=== PATIENT | female | born 1975 | race Caucasian/White ===

== ENCOUNTER 2017-01-27 07:04 | Emergency (ER) | payer SELFPAY ==
[2017-01-27] MEDS ORDERED: Sodium Chloride 0.9% 10 ML Syringe FLUSH PRN (07:40)
[2017-01-27] MEDS ORDERED: Ondansetron 4 MG/2 ML SDV IVPUSH ONE (07:40)
[2017-01-27] MEDS ORDERED: HYDROmorphone 1 MG/ML Syringe IVPUSH ONE (07:40)
[2017-01-27] MEDS ORDERED: Famotidine 20 MG/2 ML SDV IVPUSH ONE (07:40)
[2017-01-27] MEDS ORDERED: Sodium Chloride 0.9% 1,000 ML IV SCH (07:45)
--- NOTE | 2017-01-27 07:56 | EDM.PDOC ---
ED HPI GENERAL MEDICAL PROBLEM - General Chief Complaint: Abdominal Pain Stated Complaint: STOMACH PAIN Time Seen by Provider: 01/27/17 07:21 Source of Information: Reports: Patient, RN Notes Reviewed - History of Present Illness INITIAL COMMENTS - FREE TEXT/NARRATIVE: 41-year-old lady comes in with severe abdominal pain, cramping associated with vomiting and diarrhea. She had fairly sudden onset of the symptoms 2 days ago. She continues with severe watery diarrhea, intermittent vomiting both worse after any attempts to eat or drink. States she also has a daughter heal with the same symptoms that did become ill at about the same time. They have been traveling in the days leading up to the illness having arrived home the night before she became sick. She's had some chills, no major fever. She states there was some "blood" with the diarrhea last evening. Upper Abdominal Pain Score (Numeric/FACES): 10 - Related Data Allergies Allergy/AdvReac Type Severity Reaction Status Date / Time coconut Allergy Hives Verified 01/27/17 07:13 Home Meds: Home Meds Ciprofloxacin HCl [Cipro] 500 mg PO Q12HR #7 tablet 01/27/17 [Rx] Ibuprofen [Advil] 400 mg PO BID 01/27/17 [History] Ondansetron [Zofran ODT] 4 mg PO Q6H PRN #7 tab.dis 01/27/17 [Rx] traZODone 50 mg PO BEDTIME 01/27/17 [History] Past Medical History Dermatologic History: Reports: Other (See Below) - Past Surgical History Female Surgical History: Reports: Section Neurological Surgical History: Reports: C-Spine Social & Family History - Tobacco Use Smoking Status *Q: Current Every Day Smoker Years of Tobacco use: 19 Packs/Tins Daily: 1.5 - Caffeine Use Caffeine Use: Reports: Coffee, Energy Drinks, Soda - Alcohol Use Days Per Week of Alcohol Use: 6 Number of Drinks Per Day: 2 Total Drinks Per Week: 12 - Recreational Drug Use Recreational Drug Use: No Drug Use in Last 12 Months: No ED ROS GENERAL - Review of Systems Review Of Systems: See Below Constitutional: Reports: Chills. Denies: Fever HEENT: Denies: Throat Pain Respiratory: Denies: Shortness of Breath, Pleuritic Chest Pain Cardiovascular: Denies: Chest Pain GI/Abdominal: Reports: Abdominal Pain, Diarrhea, Nausea, Vomiting Musculoskeletal: Reports: No Symptoms Skin: Reports: No Symptoms Neurological: Reports: Dizziness ED EXAM, GI/ABD - Physical Exam Exam: See Below General Appearance: Alert, Anxious, Moderate Distress Eyes: Bilateral: Normal Appearance Throat/Mouth: Normal Inspection, Normal Oropharynx Head: Atraumatic. No: Facial Swelling Neck: Supple, Full Range of Motion Respiratory/Chest: No Respiratory Distress, Lungs Clear, Normal Breath Sounds Cardiovascular: Regular Rate, Rhythm GI/Abdominal Exam: Tender (diffuse) Back Exam: No: CVA Tenderness (L), CVA Tenderness (R) Extremities: Normal Inspection, Normal Range of Motion Neurological: Alert, Oriented, No Motor/Sensory Deficits Skin Exam: Warm, Dry, Normal Color Course - Vital Signs Last Recorded V/S: Last Vital Signs Temp 98.7 F 01/27/17 07:10 Pulse 91 01/27/17 07:10 Resp 16 01/27/17 07:10 BP 124/65 01/27/17 07:10 Pulse Ox 97 01/27/17 07:10 - Orders/Labs/Meds Orders: Active Orders 24 hr Category Date Time Status Peripheral IV Care [RC] . DIRECTED Care 01/27/17 07:40 Active HYDROmorphone [Dilaudid] Med 01/27/17 08:54 Once 0.5 mg IVPUSH ONETIME ONE Sodium Chloride 0.9% [Normal Saline] 1,000 ml Med 01/27/17 07:45 Active IV ONETIME Sodium Chloride 0.9% [Saline Flush] Med 01/27/17 07:40 Active 10 ml FLUSH ASDIRECTED PRN Peripheral IV Insertion Adult [OM.PC] Stat Oth 01/27/17 07:40 Ordered Medication Orders Hydromorphone HCl (Dilaudid) 0.5 mg IVPUSH ONETIME ONE Stop: 01/27/17 08:55 Sodium Chloride (Normal Saline) 1,000 mls @ 999 mls/hr IV ONETIME YESSICA Last Admin: 01/27/17 07:49 Dose: 999 mls/hr Sodium Chloride (Saline Flush) 10 ml FLUSH ASDIRECTED PRN PRN Reason: Keep Vein Open Last Admin: 01/27/17 07:45 Dose: 10 ml Labs: Laboratory Tests 01/27/17 01/27/17 Range/Units 07:18 07:18 WBC 8.69 (3.98-10.04) K/mm3 RBC 4.71 (3.98-5.22) M/mm3 Hgb 14.4 (11.2-15.7) gm/L Hct 41.4 (34.1-44.9) % MCV 87.9 (79.4-94.8) fl MCH 30.6 (25.6-32.2) pg MCHC 34.8 (32.2-35.5) g/dl RDW Std Deviation 44.8 (36.4-46.3) fL Plt Count 196 (182-369) K/mm3 MPV 10.3 (9.4-12.3) fl Neut % (Auto) 84.3 H (34.0-71.1) % Lymph % (Auto) 10.5 L (19.3-51.7) % [place] % (Auto) 4.7 (4.7-12.5) % Eos % (Auto) 0.1 L (0.7-5.8) Baso % (Auto) 0.2 (0.1-1.2) % Neut # (Auto) 7.32 H (1.56-6.13) K/mm3 Lymph # (Auto) 0.91 L (1.18-3.74) K/mm3 [place] # (Auto) 0.41 H (0.24-0.36) K/mm3 Eos # (Auto) 0.01 L (0.04-0.36) K/mm3 Baso # (Auto) 0.02 (0.01-0.08) K/mm3 Sodium 134 L (136-145) mEq/L Potassium 3.7 (3.5-5.1) mEq/L Chloride 99 (98-107) mEq/L Carbon Dioxide 26 (21-32) mEq/L Anion Gap 12.7 (5-15) BUN 8 (7-18) mg/dL Creatinine 1.2 H (0.55-1.02) mg/dL Est Cr Clr Drug Dosing 63.17 mL/min Estimated GFR (MDRD) 49 (>60) mL/min BUN/Creatinine Ratio 6.7 L (14-18) Glucose 116 H (74-106) mg/dL Calcium 9.2 (8.5-10.1) mg/dL Total Bilirubin 0.2 (0.2-1.0) mg/dL AST 22 (15-37) U/L ALT 11 L (14-59) U/L Alkaline Phosphatase 54 (46-116) U/L Total Protein 7.8 (6.4-8.2) g/dl Albumin 3.5 (3.4-5.0) g/dl Globulin 4.3 gm/dL Albumin/Globulin Ratio 0.8 L (1-2) Lipase 104 (73-393) U/L Meds: Medications Generic Name Dose Route Start Last Admin Trade Name Freq PRN Reason Stop Dose Admin Hydromorphone HCl 0.5 mg 01/27/17 08:54 Dilaudid IVPUSH 01/27/17 08:55 ONETIME ONE Sodium Chloride 1,000 mls @ 999 mls/hr 01/27/17 07:45 01/27/17 07:49 Normal Saline IV 999 mls/hr ONETIME YESSICA Administration Sodium Chloride 10 ml 01/27/17 07:40 01/27/17 07:45 Saline Flush FLUSH 10 ml ASDIRECTED PRN Administration Keep Vein Open Discontinued Medications Generic Name Dose Route Start Last Admin Trade Name Freq PRN Reason Stop Dose Admin Famotidine 20 mg 01/27/17 07:40 01/27/17 07:46 Pepcid IVPUSH 01/27/17 07:41 20 mg ONETIME ONE Administration Hydromorphone HCl 0.5 mg 01/27/17 07:40 01/27/17 07:47 Dilaudid IVPUSH 01/27/17 07:41 0.5 mg ONETIME ONE Administration Ondansetron HCl 4 mg 01/27/17 07:40 01/27/17 07:45 Zofran IVPUSH 01/27/17 07:41 4 mg ONETIME ONE Administration - Re-Assessments/Exams Free Text/Narrative Re-Assessment/Exam: 01/27/17 08:55 Feeling somewhat better after IV fluid and meds, pain and cramping is starting to come back intermittently so we'll do another dose of 0.5 mg Dilaudid IV. As noted a daughter of hers is also ill with the same symptoms coming on at about the same time. They're not sure when this happened but this sure looks like a food borne illness. Therefore I am going to put her on Cipro 500 mg twice a day for 3 days. Prescription also will be provided for when necessary Zofran. Discharge instructions as documented Free Text/Narrative Re-Assessment/Exam: 01/27/17 08:59 clear liquids until this evening or until sx of vomting, diarrhea and cramping resolving. cipro antibiotic twice daily until gone, zofran ODT if needed for further nausea or vomiting. Probiotic twice daily for about a week. Follow up clinic if not much beter within 2 to 3 days as expected, return to ED as needed. Departure - Departure Time of Disposition: 09:01 Disposition: Home, Self-Care 01 Condition: Fair Clinical Impression: Gastroenteritis - Discharge Information Forms: ED Department Discharge - My Orders Last 24 Hours: My Active Orders 01/27/17 07:40 Peripheral IV Care [RC] . DIRECTED Sodium Chloride 0.9% [Saline Flush] 10 ml FLUSH ASDIRECTED PRN Peripheral IV Insertion Adult [OM.PC] Stat 01/27/17 07:45 Sodium Chloride 0.9% [Normal Saline] 1,000 ml IV ONETIME 01/27/17 08:54 HYDROmorphone [Dilaudid] 0.5 mg IVPUSH ONETIME ONE - Assessment/Plan Last 24 Hours: My Active Orders 01/27/17 07:40 Peripheral IV Care [RC] . DIRECTED Sodium Chloride 0.9% [Saline Flush] 10 ml FLUSH ASDIRECTED PRN Peripheral IV Insertion Adult [OM.PC] Stat 01/27/17 07:45 Sodium Chloride 0.9% [Normal Saline] 1,000 ml IV ONETIME 01/27/17 08:54 HYDROmorphone [Dilaudid] 0.5 mg IVPUSH ONETIME ONE
[2017-01-27] MEDS ORDERED: HYDROmorphone 0.5 MG/0.5 ML Syringe IVPUSH ONE (08:54)
[2017-01-27 09:13] VITALS: BP 108/61
== END 2017-01-27 08:20 | disposition home or self-care (01) ==
LOC: JD.ED 07:04
DX: K52.9 Noninfective gastroenteritis and colitis, unspecified (principal); F17.210 Nicotine dependence, cigarettes, uncomplicated; Z91.018 Allergy to other foods
CPT/HCPCS: 36415; 80053; 83690; 85025; 96361; 96374; 96375; 96376; 99284; J1170; J2405; J7040; J7050

== ENCOUNTER 2017-10-27 09:09 | Emergency (ER) | payer SELFPAY ==
[2017-10-27 09:21] VITALS: BP 159/112
[2017-10-27] MEDS ORDERED: oxyCODONE 5 MG Tab PO ONE (09:42)
[2017-10-27] MEDS ORDERED: Diazepam 5 MG Tab PO ONE (09:42)
--- NOTE | 2017-10-27 10:04 | EDM.PDOC ---
ED HPI GENERAL MEDICAL PROBLEM - General Chief Complaint: Upper Extremity Injury/Pain Stated Complaint: R SHOULDER PAIN Time Seen by Provider: 10/27/17 09:21 Source of Information: Reports: Patient History Limitations: Reports: No Limitations - History of Present Illness INITIAL COMMENTS - FREE TEXT/NARRATIVE: The patient is a 42-year-old female with a chief complaint of right shoulder pain. No injury. She has severe pain about the right shoulder. It is excruciating for her to move the shoulder at all. She's been taking Advil for pain with no relief. States that she does have a prior history of a left shoulder problem, states that she was told that her tendons were frozen. Left shoulder improved with time. States that she hasn't had this type of pain in the right shoulder before. She does not recall an injury. The pain started spontaneously. No additional joint pain. Pain is severe, unable to sleep due to pain. Lost her insurance so hasn't been able to see her primary doctor. Right Shoulder Pain Score (Numeric/FACES): 10 - Related Data Allergies Allergy/AdvReac Type Severity Reaction Status Date / Time coconut Allergy Hives Verified 10/27/17 09:21 Home Meds: Home Meds traZODone 50 mg PO BEDTIME 01/27/17 [History] Cyclobenzaprine [Flexeril] 10 mg PO TID PRN #20 tab 10/27/17 [Rx] Ibuprofen [IMW: Ibuprofen] 800 mg PO TID PRN #30 tab 10/27/17 [Rx] oxyCODONE 5 mg PO QID PRN #15 tab 10/27/17 [Rx] Past Medical History Dermatologic History: Reports: Other (See Below) - Past Surgical History Female Surgical History: Reports: Section Neurological Surgical History: Reports: C-Spine Social & Family History - Tobacco Use Smoking Status *Q: Current Every Day Smoker Years of Tobacco use: 30 Packs/Tins Daily: 0.5 - Caffeine Use Caffeine Use: Reports: Coffee - Recreational Drug Use Recreational Drug Use: Yes Drug Use in Last 12 Months: No Recreational Drug Type: Reports: Methamphetamine Recreational Drug Last Use: May Review of Systems - Review of Systems Review Of Systems: See Below Constitutional: Denies: Fever Eyes: Reports: No Symptoms Ears: Reports: No Symptoms Nose: Reports: No Symptoms Mouth/Throat: Reports: No Symptoms Respiratory: Denies: Shortness of Breath Cardiovascular: Denies: Chest Pain GI/Abdominal: Denies: Abdominal Pain Genitourinary: Reports: No Symptoms Musculoskeletal: Reports: Neck Pain, Shoulder Pain Skin: Reports: No Symptoms Neurological: Reports: No Symptoms Psychiatric: Reports: No Symptoms ED EXAM, GENERAL - Physical Exam Exam: See Below Exam Limited By: No Limitations General Appearance: Alert, Anxious, Moderate Distress Eye Exam: Bilateral Eye: Normal Inspection Ears: Normal External Exam Nose: Normal Inspection Throat/Mouth: Normal Inspection, Normal Oropharynx, Normal Voice, No Airway Compromise Head: Atraumatic, Normocephalic Neck: Normal Inspection, Supple, Non-Tender, Full Range of Motion Respiratory/Chest: No Respiratory Distress, Lungs Clear, Normal Breath Sounds, Chest Non-Tender Cardiovascular: Normal Peripheral Pulses, Regular Rate, Rhythm, No Edema, No Murmur GI/Abdominal: Soft, Non-Tender, No Distention. No: Rebound Back Exam: Normal Inspection. No: Vertebral Tenderness Extremities: Normal Inspection, Other (Holding right shoulder and adduction, flexed at the elbow, unable to abduct due to pain. No deformity, skin normal, no elbow tenderness, she is diffusely tender about the shoulder, difficult to localize point tenderness due to his degree of pain and overall distress. Distal motor/perfusion/sensation intact.) Neurological: Alert, Oriented, Normal Cognition, No Motor/Sensory Deficits Psychiatric: Anxious, Tearful Skin Exam: Warm, Dry, Intact, Normal Color, No Rash Course - Vital Signs Last Recorded V/S: Last Vital Signs Temp 36.8 C 10/27/17 09:19 Pulse 87 10/27/17 09:19 Resp 16 10/27/17 09:19 BP 159/112 H 10/27/17 09:19 Pulse Ox 98 10/27/17 09:19 - Orders/Labs/Meds Orders: Active Orders 24 hr Category Date Time Status Shoulder Comp Rt [CR] Stat Exams 10/27/17 09:43 Taken Meds: Medications Discontinued Medications Generic Name Dose Route Start Last Admin Trade Name Freq PRN Reason Stop Dose Admin Diazepam 10 mg 10/27/17 09:42 10/27/17 09:53 Valium. PO 10/27/17 09:43 10 mg ONETIME ONE Administration Oxycodone HCl 5 mg 10/27/17 09:42 10/27/17 09:54 Oxycodone PO 10/27/17 09:43 5 mg ONETIME ONE Administration - Re-Assessments/Exams Free Text/Narrative Re-Assessment/Exam: 10/27/17 10:46 X-ray shows normal alignment of the shoulder. I do see some slight density along the course of the supraspinatus tendon suggestive of possible calcific tendonitis. We'll provide sling, counseled patient that this should only be used for a couple of days and then she should start until range of motion activities. We'll provide her with a short course of cyclobenzaprine and oxycodone. Encouraged her to follow-up with an orthopedist for further care. She may also follow-up with the primary doctor for referral for physical therapy. 10/27/17 10:50 Departure - Departure Time of Disposition: 10:47 Disposition: Home, Self-Care 01 Clinical Impression: Shoulder pain, right Qualifiers: Chronicity: acute Qualified Code(s): M25.511 - Pain in right shoulder - Discharge Information Prescriptions: Cyclobenzaprine [Flexeril] 10 mg PO TID PRN #20 tab PRN Reason: Pain Ibuprofen [IMW: Ibuprofen] 800 mg PO TID PRN #30 tab PRN Reason: Pain oxyCODONE 5 mg PO QID PRN #15 tab PRN Reason: Pain Referrals: Juanito Jones MD [Primary Care Provider] - Forms: ED Department Discharge Additional Instructions: 1. Wear shoulder sling as needed for comfort but try to limit the use of this as much as possible. He should start gentle range of motion activities of the shoulder as soon as possible to avoid getting a frozen shoulder. 2. Take ibuprofen for pain. Take cyclobenzaprine as needed for muscle relaxation. Take oxycodone for severe pain. Take the least possible dose of oxycodone. No driving or working while taking this medication as it can make you sleepy or confused. This medication can be addictive if taken long-term and can also increase your body's sensitivity to pain, so should only be used as a short-term option. 3. Follow-up with orthopedics as soon as possible. Call [phone] Page. Alternatively follow-up with the orthopedist of your choice. 4. Also follow-up with your primary doctor, who can provide referrals for physical therapy which will likely help to get better faster. - My Orders Last 24 Hours: My Active Orders 10/27/17 09:43 Shoulder Comp Rt [CR] Stat - Assessment/Plan Last 24 Hours: My Active Orders 10/27/17 09:43 Shoulder Comp Rt [CR] Stat
--- NOTE | 2017-10-27 11:02 | CR ---
Right shoulder: Two views of the right shoulder were obtained. Comparison: No prior right shoulder exam. No dislocation is seen. Flattening of the humeral head is seen presumably due to previous fracture. Acromioclavicular joint appears within normal limits. Prior cervical spine surgery is noted. Impression: 1. Flattening of the humeral head most likely representing previous impaction fracture. 2. Right shoulder study is otherwise unremarkable. Diagnostic code #2
== END 2017-10-27 11:10 | disposition home or self-care (01) ==
LOC: JD.ED 09:09
DX: M25.511 Pain in right shoulder (principal); F17.210 Nicotine dependence, cigarettes, uncomplicated; Z91.018 Allergy to other foods; Z79.899 Other long term (current) drug therapy
CPT/HCPCS: 73030; 99283; A9270

== ENCOUNTER 2022-01-02 11:09 | Emergency (ER) | payer MEDICAID ==
[2022-01-02 11:22] VITALS: BP 118/77; PULSE 87
== END 2022-01-02 13:15 | disposition home or self-care (01) ==
LOC: JD.ED 11:09
DX: T76.11XA Adult physical abuse, suspected, initial encounter (principal); F17.210 Nicotine dependence, cigarettes, uncomplicated; Z91.018 Allergy to other foods; Z79.899 Other long term (current) drug therapy
CPT/HCPCS: 70450; 70450-26; 70490; 70490-26; 99282; 99284

== ENCOUNTER 2022-10-05 15:34 | Emergency (ER) | payer MEDICAID ==
[2022-10-05 15:47] VITALS: BP 136/116; PULSE 106
[2022-10-05] MEDS ORDERED: HYDROmorphone 1 MG/ML Syringe IM ONE (15:54)
== END 2022-10-05 17:06 | disposition home or self-care (01) ==
LOC: JD.ED 15:34
DX: S90.31XA Contusion of right foot, initial encounter (principal); Z91.018 Allergy to other foods; Z72.0 Tobacco use; W22.8XXA Striking against or struck by other objects, initial encounter
CPT/HCPCS: 73630; 96372; 99283; J1170

== ENCOUNTER 2022-11-13 12:22 | Emergency (ER) | payer MEDICAID ==
[2022-11-13] MEDS ORDERED: HYDROmorphone 1 MG/ML Syringe IM ONE (12:45)
[2022-11-13 13:56] LABS: BASOPHILS ABSOLUTE AUTO 0.06 K/mm3 (0.01-0.08); BASOPHILS PERCENT AUTO 0.6 % (0.1-1.2); EOSINOPHILS ABSOLUTE AUTO 0.26 K/mm3 (0.04-0.36); EOSINOPHILS PERCENT AUTO 2.8 (0.7-5.8); HEMATOCRIT 41.2 % (34.1-44.9); HEMOGLOBIN 13.6 gm/dl (11.2-15.7); IMMATURE GRAN ABSOLUTE AUTO 0.03 K/mm3 (0.00-0.10); IMMATURE GRAN PERCENT AUTO 0.3 % (<=1.0); LYMPHOCYTES ABSOLUTE AUTO 2.32 K/mm3 (1.18-3.74); LYMPHOCYTES PERCENT AUTO 25.1 % (19.3-51.7); MEAN CORPUSCULAR HEMOGLOBIN 28.2 pg (25.6-32.2); MEAN CORPUSCULAR VOLUME 85.5 fl (79.4-94.8); MEAN PLATELET VOLUME 10.3 fl (9.4-12.3); MONOCYTES ABSOLUTE AUTO 0.75 K/mm3 (0.24-0.36); MONOCYTES PERCENT AUTO 8.1 % (4.7-12.5); NEUTROPHILS ABSOLUTE AUTO 5.84 K/mm3 (1.56-6.13); NEUTROPHILS PERCENT AUTO 63.1 % (34.0-71.1); PLATELET COUNT,PLT 115 K/mm3 (182-369); RED BLOOD CELL COUNT 4.82 M/mm3 (3.98-5.22); WHITE BLOOD CELL COUNT,WBC 9.26 K/mm3 (3.98-10.04)
[2022-11-13 14:06] LABS: BARBITURATE SCREEN,URINE NEGATIVE (CUTOFF=200); BENZODIAZEPINES SCREEN,URINE NEGATIVE (CUTOFF=150); BUPRENORPHINE SCREEN,URINE NEGATIVE (CUTOFF=10); METHADONE SCREEN, URINE NEGATIVE (CUTOFF=200); METHAMPHETAMINES SCREEN, URINE NEGATIVE (CUTOFF=500); OXYCODONE SCREEN,URINE NEGATIVE (CUT0FF=100); PROPOXYPHENE SCREEN,URINE NEGATIVE (CUTOFF=300); THC SCREEN,URINE 20 NG/ML NEGATIVE (CUTOFF=50)
[2022-11-13 14:07] LABS: AMPHETAMINES SCREEN, URINE PRESUMPTIVE POSITIVE (CUTOFF=500)
[2022-11-13 14:24] LABS: ANION GAP 15.1 (5-15); EST CRCL DRUG DOSING (CG) 68.22 mL/min; POTASSIUM,K 4.1 mEq/L (3.5-5.1)
[2022-11-13 14:25] LABS: A/G RATIO 1.1 (1-2); ALBUMIN 3.6 g/dl (3.4-5.0); BILIRUBIN TOTAL 0.2 mg/dL (0.2-1.0); CALCIUM 8.8 mg/dL (8.5-10.1); SLIDE REVIEW ABNORMAL SMEAR; TSH 0.112 uIU/mL (0.358-3.74)
[2022-11-13 15:07] VITALS: BP 106/80; PULSE 75
== END 2022-11-13 14:55 ==
LOC: JD.ED 12:22
DX: M25.552 Pain in left hip (principal); M54.2 Cervicalgia; M25.512 Pain in left shoulder; R51.9 Headache, unspecified; Z91.018 Allergy to other foods; Z98.890 Other specified postprocedural states
CPT/HCPCS: 36415; 70450; 72125; 73502; 80053; 80143; 80179; 80306; 80307; 81025; 83605; 84443; 85025; 96372; 99285; J1170; 99283

== ENCOUNTER 2025-04-09 10:16 | Emergency (ER) | payer SELFPAY ==
[2025-04-09] MEDS: Ketorolac 60 MG/2 ML SDV IM ONE (11:15)
[2025-04-09] MEDS: Acetaminophen/HYDROcodone 325-5 MG Tab PO ONE (11:15)
[2025-04-09] MEDS: LORazepam 2 MG/ML SDV IM STA (11:16)
[2025-04-09 12:38] VITALS: BP 129/74; PULSE 85
== END 2025-04-09 12:37 | disposition home or self-care (01) ==
LOC: JD.ED 10:16
DX: M25.551 Pain in right hip (principal); M54.50 Low back pain, unspecified; Z91.018 Allergy to other foods; W19.XXXA Unspecified fall, initial encounter
CPT/HCPCS: 73501; 96372; 99283; A9270; J1885; J2060; 99284

== ENCOUNTER 2025-05-04 18:39 | Emergency (ER) | payer SELFPAY ==
[2025-05-04] MEDS: LORazepam 2 MG/ML SDV IM STA (19:08)
[2025-05-04 23:10] VITALS: BP 112/77; PULSE 89
== END 2025-05-04 22:00 | disposition home or self-care (01) ==
LOC: JD.ED 18:39
DX: F43.0 Acute stress reaction (principal); M54.50 Low back pain, unspecified; R45.1 Restlessness and agitation; M62.838 Other muscle spasm; M25.551 Pain in right hip; F41.9 Anxiety disorder, unspecified; G47.00 Insomnia, unspecified; Z91.018 Allergy to other foods
CPT/HCPCS: 96372; 99284; A9270; J2060

== ENCOUNTER 2025-05-14 04:05 | Emergency (ER) | payer SELFPAY ==
[2025-05-14] MEDS ORDERED: LORazepam 2 MG/ML SDV ONE (04:08)
[2025-05-14] MEDS: LORazepam 2 MG/ML SDV IM STA (04:11)
[2025-05-14 04:32] VITALS: PULSE 128
[2025-05-14] MEDS ORDERED: LORazepam 2 MG/ML SDV IVPUSH ONE (04:38)
[2025-05-14] MEDS: LORazepam 2 MG/ML SDV IM ONE (04:46)
== END 2025-05-14 04:58 ==
LOC: JD.ED 04:05
DX: F15.10 Other stimulant abuse, uncomplicated (principal); S20.311A Abrasion of right front wall of thorax, initial encounter; R25.8 Other abnormal involuntary movements; S00.83XA Contusion of other part of head, initial encounter; S50.02XA Contusion of left elbow, initial encounter; S50.01XA Contusion of right elbow, initial encounter; S80.02XA Contusion of left knee, initial encounter; S80.01XA Contusion of right knee, initial encounter; Z91.018 Allergy to other foods; Z79.899 Other long term (current) drug therapy; X58.XXXA Exposure to other specified factors, initial encounter; Y93.89 Activity, other specified
CPT/HCPCS: 96372; 99284; J2060

== ENCOUNTER 2025-05-14 14:44 | Emergency (ER) | payer SELFPAY ==
[2025-05-14] MEDS: Lactated Ringers 1,000 ML IV SCH (15:24)
[2025-05-14] MEDS: Ketamine 500 mg/10 ML MDV IM ONE (16:14)
[2025-05-14 16:59] LABS: BASOPHILS ABSOLUTE AUTO 0.1 K/mm3 (0.0-0.2); BASOPHILS PERCENT AUTO 0.3 % (0.0-1.0); EOSINOPHILS ABSOLUTE AUTO 0.0 K/mm3 (0.0-0.4); EOSINOPHILS PERCENT AUTO 0.2 % (0.0-6.0); IMMATURE GRAN ABSOLUTE AUTO 0.14 K/mm3 (0.00-0.05); IMMATURE GRAN PERCENT AUTO 0.7 % (0.0-0.4); LYMPHOCYTES ABSOLUTE AUTO 2.3 K/mm3 (1.0-4.8); LYMPHOCYTES PERCENT AUTO 11.4 % (24.0-44.0); MEAN PLATELET VOLUME 9.7 fl (9.4-12.3); MONOCYTES ABSOLUTE AUTO 1.5 K/mm3 (0.0-0.8); MONOCYTES PERCENT AUTO 7.6 % (0.0-8.0); NEUTROPHILS ABSOLUTE AUTO 15.8 K/mm3 (1.8-7.7); NEUTROPHILS PERCENT AUTO 79.8 % (41.0-71.0); NRBC ABSOLUTE 0.00 (0.00-0.02); NRBC PERCENT 0.0 % (0.0-0.2); PLATELET COUNT,PLT 311 K/mm3 (150-400); RED BLOOD CELL COUNT 4.40 M/mm3 (4.10-5.30); WHITE BLOOD CELL COUNT,WBC 19.75 K/mm3 (3.9-11.3)
[2025-05-14 17:23] LABS: A/G RATIO 1.1 (1-2); ALANINE AMINOTRANSFERASE,ALT 96 U/L (14-59); ASPARTATE AMNIOTRANSFERASE,AST 503 U/L (15-37); BILIRUBIN TOTAL 0.6 mg/dL (0.2-1.0); BLOOD UREA NITROGEN,BUN 46 mg/dL (7-18); CARBON DIOXIDE,CO2 24 mEq/L (21-32); CHLORIDE,CL 111 mEq/L (98-107); CREATININE 1.7 mg/dL (0.55-1.02); ESTIMATED GFR 36 mL/min (>60); GLUCOSE RANDOM 113 mg/dL (70-99); POTASSIUM,K 4.2 mEq/L (3.5-5.1); PROTEIN TOTAL,TP 7.1 g/dl (6.4-8.2); SODIUM,NA 150 mEq/L (136-145)
[2025-05-14 17:26] LABS: LACTIC ACID 1.5 mmol/L (0.4-2.0)
[2025-05-14 17:32] LABS: ETHANOL BLOOD MEDICAL 0.00 gm% (0.00)
[2025-05-14] MEDS: Clindamycin Phosphate in D5W 900 MG in Premix Bag 1 BAG IV ONE (18:27)
[2025-05-14] MEDS: Midazolam 1 MG/ML 5 ML SDV ONE (18:28)
[2025-05-14] MEDS: Midazolam 5 MG/ML 10 ML MDV IV ONE (18:29)
[2025-05-14 18:39] LABS: APPEARANCE,URINE SLT CLOUDY (Clear); GLUCOSE,URINE NEGATIVE (Negative); OCCULT BLOOD,URINE 3+ (Negative)
[2025-05-14 18:50] LABS: EPITHELIAL CELLS,URINE 0-5 /hpf (0-5)
[2025-05-14] MEDS: Midazolam 1 MG/ML 2 ML SDV ONE (20:30)
[2025-05-14] MEDS: VANCOmycin 1.5 GM/300 ML 1.5 GM in Premix Bag 1 BAG IV ONE (20:34)
[2025-05-14] MEDS: Propofol 200 MG/20 ML SDV IVPUSH ONE ×2 (20:46→21:31)
[2025-05-14] MEDS: Ketamine 200 MG/20 ML MDV ONE (21:51)
[2025-05-14] MEDS: Ketamine 200 MG/20 ML MDV IVPUSH ONE (21:55)
[2025-05-14] MEDS: Propofol 200 MG/20 ML SDV ONE (21:55)
[2025-05-14] MEDS: Dextrose 5%-0.9% NaCl with KCl 1,000 ML IV SCH (23:33)
[2025-05-15] MEDS: Midazolam 1 MG/ML 2 ML SDV IVPUSH ONE (00:36)
[2025-05-15 01:11] LABS: BUPRENORPHINE SCREEN,URINE NEGATIVE (CUTOFF=10); METHADONE SCREEN, URINE NEGATIVE (CUTOFF=200); METHAMPHETAMINES SCREEN, URINE PRESUMPTIVE POSITIVE (CUTOFF=500); OXYCODONE SCREEN,URINE NEGATIVE (CUT0FF=100); THC SCREEN,URINE 20 NG/ML PRESUMPTIVE POSITIVE (CUTOFF=50)
[2025-05-15 01:15] LABS: AMPHETAMINES SCREEN, URINE PRESUMPTIVE POSITIVE (CUTOFF=500)
[2025-05-15 02:28] VITALS: BP 121/71; PULSE 88
== END 2025-05-15 00:42 ==
LOC: JD.ED 14:44
DX: F15.10 Other stimulant abuse, uncomplicated (principal); F10.10 Alcohol abuse, uncomplicated; L98.491 Non-pressure chronic ulcer of skin of other sites limited to breakdown of skin; L03.011 Cellulitis of right finger; S00.83XA Contusion of other part of head, initial encounter; R01.1 Cardiac murmur, unspecified; Z91.018 Allergy to other foods; Z79.899 Other long term (current) drug therapy; W22.8XXA Striking against or struck by other objects, initial encounter; Y90.0 Blood alcohol level of less than 20 mg/100 ml
CPT/HCPCS: 36415; 36556; 70450; 71045; 71250; 80053; 80306; 80307; 81001; 81003; 82947; 83605; 83690; 83735; 83880; 85025; 86140; 87040; 93005; 96361; 96365; 96366; 96367; 96375; 99152; 99153; 99291; 99292; C1751; C1758; J0696; J0736; J2250; J2704; J3375; J3480; J3490; J7120; S5010; 93010